=== PATIENT | male | born 1980 | race Hispanic/Latino ===

== ENCOUNTER 2018-02-18 06:20 | Inpatient (IN) | payer OTHER ==
[~2018-02-18] VITALS: Ht 182.9 cm; Wt 98.1 kg
--- NOTE | 2018-02-18 07:18 | ED GENERAL ADULT ---
History of Present Illness General Chief Complaint: Hand or Wrist Injury Stated Complaint: PT C/O RT INDEX FINGER INFECTION SEEN AT WALK IN Source: patient Exam Limitations: no limitations Vital Signs & Intake/Output Vital Signs & Intake/Output Vital Signs Date Time Temp Pulse Resp B/P B/P Pulse O2 O2 Flow FiO2 Mean Ox Delivery Rate 02/18 0839 98.0 92 18 128/79 99 Room Air 02/18 0631 97.8 98 16 132/96 98 Room Air Allergies Coded Allergies: Penicillins (Intermediate, HIVES 02/18/18) Reconcile Medications Sulfamethoxazole/Trimethoprim (Bactrim Ds Tablet) 800 MG-160 MG TABLET 1 TAB PO BID ANTIBIOTIC, INFECTION (Reported) Triage Note: PT STATES HE BURNED HIS R INDEX FINGER LAST WEEKEND AND WOUND GOT INCREASINGLY SWOLLEN AND PAINFUL AND RED. WENT TO WALK IN ON THURSDAY AND WAS PRESCRIBED BACTRIM WHICH HE HAS BEEN TAKING ORDERED, STAES SWELLING AND PAIN AND REDNESS ARE NOW WORSE. AFEBRILE. Triage Nurses Notes Reviewed? yes Onset: Gradual Duration: day(s): Timing: recent history HPI: 02/18/18 10:12 AM 37-year-old male presents to the emergency department for pain swelling and decreased range of motion to the right index finger. The patient states that he had a burn to his right index finger approximately 3 days ago. He went to an urgent care center was started on Bactrim. Now he says the finger is swollen up and he can no longer move it. He denies fever or other complaints. Past History Travel History Traveled to [place] past 21 day No Medical History Any Pertinent Medical History? 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 No Review of Systems Review of Systems Constitutional: Denies: fever. EENTM: Reports: no symptoms. Respiratory: Denies: short of breath. Cardiovascular: Denies: chest pain. GI: Denies: abdominal pain. Genitourinary: Reports: no symptoms. Musculoskeletal: Reports: see HPI. Skin: Reports: see HPI. Neurological/Psychological: Reports: no symptoms. Hematologic/Endocrine: Reports: no symptoms. Immunologic/Allergic: Reports: no symptoms. Physical Exam Physical Exam General Appearance: well developed/nourished, alert, awake, anxious Head: atraumatic, normal appearance Eyes: Bilateral: normal appearance, PERRL, EOMI. Ears, Nose, Throat: normal pharynx, normal ENT inspection Neck: normal inspection, supple, full range of motion Respiratory: no respiratory distress Cardiovascular: regular rate/rhythm Peripheral Pulses: 4+ radial (R), 4+ radial (L) Gastrointestinal: non-tender Back: normal range of motion Extremities: swelling, tenderness Neurologic/Psych: no motor/sensory deficits, awake, alert, oriented x 3 Skin: rash Comments: He has an ulceration that is the size of a quarter with surrounding erythema and swelling to the right index finger. This is on the lateral aspect of the right index finger. He is unable to flex his right finger. Core Measures ACS in differential dx? No CVA/TIA Diagnosis: No Sepsis Present: No Sepsis Focused Exam Completed? No Progress Differential Diagnoses I considered the following diagnoses in my evaluation of the patient: [ Cellulitis, tenosynovitis, osteomyelitis] Plan of Care: Orders Procedure Date/time Status Heart Healthy Diet 02/18 L Active Patient Data 02/18 0847 Active ED Holding Orders 02/18 0839 Active Admit to inpatient 02/18 0839 Active Vital Signs 02/18 0839 Active Code Status 02/18 0839 Active BLOOD CULTURE 02/18 0756 Active EXTREMETIES CULTURE 02/18 0754 Active COMPREHENSIVE METABOLIC PANEL 02/18 0754 Complete CBC WITHOUT DIFFERENTIAL 02/18 0754 Complete Intake & Output 02/18 0634 Active Current Medications Sig/Julien Start time Last Medication Dose Stop Time Status Admin Sodium Chloride 1,000 ML ONCE ONE 02/18 0800 AC 02/18 (Normal Saline 0.9%) 02/18 1439 0827 Laboratory Tests 02/18/18 0920: RBC 4.72, MCV 84.7, MCH 28.7, MCHC 33.9, RDW 13.3, MPV 8.6, Gran % 73.9, Lymphocytes % 17.5 L, Monocytes % 7.8, Eosinophils % 0.7, Basophils % 0.1, Absolute Granulocytes 7.8 H, Absolute Lymphocytes 1.8, Absolute Monocytes 0.8 H, Absolute Eosinophils 0.1, Absolute Basophils 0 02/18/18 0842: Anion Gap 8, Estimated GFR > 60, BUN/Creatinine Ratio 15.0, Glucose 115 H, Calcium 9.2, Total Bilirubin 0.5, AST 18, ALT 37, Alkaline Phosphatase 58, Total Protein 6.9, Albumin 4.2, Globulin 2.7, Albumin/Globulin Ratio 1.6 Microbiology 02/18 09 BLOOD: Blood Culture - RECD 02/18 842 BLOOD: Blood Culture - RECD 02/18 754 EXTREMITIE: Culture & Sensitivity - ORD 02/18 754 EXTREMITIE: Gram Stain - ORD Initial ED EKG: none Departure Departure Disposition: STILL A PATIENT Condition: Stable Clinical Impression Primary Impression: Cellulitis Referrals: Patient Has No Primary Care Dr (PCP/Family) Departure Forms: Customer Survey General Discharge Information Admission Note Spoke With: Tim SUN,Jasmin Documentation of Exam: Documentation of any treatments & extenuating circumstances including Concerns Regarding Discharge (functional status, medication knowledge or non-compliance, living conditions, etc.) that warrant an admission rather than observation: [ Patient needs IV antibiotics, hand consult Critical Care Note Critical Care Note Critical Care Time: 30-74 min
[2018-02-18] MEDS ORDERED: BACTRIM DS TAB1 EACH PO (08:18)
[2018-02-18 09:35] LABS: ABSOLUTE BASOPHIL COUNT 0 /CUMM (0.0-0.2); ABSOLUTE EOSINOPHIL COUNT 0.1 /CUMM (0.0-0.7); ABSOLUTE GRANULOCYTE CT 7.8 /CUMM (1.4-6.5); ABSOLUTE LYMPH COUNT 1.8 /CUMM (1.2-3.4); ABSOLUTE MONOCYTE COUNT 0.8 /CUMM (0.10-0.60); BASOPHIL % 0.1 % (0.0-2.0); EOSINOPHIL % 0.7 % (0-5); GRANULOCYTE % 73.9 % (42.2-75.2); HEMATOCRIT 39.9 % (42-52); MEAN CORPUSCULAR HGB 28.7 PG (27.0-31.0); MEAN CORPUSCULAR HGB CONC 33.9 G/DL (33.0-37.0); MEAN CORPUSCULAR VOLUME 84.7 FL (80.0-94.0); MEAN PLATELET VOLUME 8.6 FL (7.4-10.4); PLATELET COUNT 246 /CUMM (130-400); RBC DISTRIBUTION WIDTH 13.3 % (11.5-14.5); RED BLOOD CELL CT 4.72 /CUMM (4.70-6.10); WHITE BLOOD CELL COUNT 10.5 /CUMM (4.8-10.8)
[2018-02-18 10:25] VITALS: BP 134/90
--- NOTE | 2018-02-18 11:18 | History & Physical ---
Walker SUN,Kate 02/18/18 1106: General Information and HPI MD Statement: I have seen and personally examined RUFINO LOCO and documented this H&P. The patient is a 37 year old M who presented with a patient stated chief complaint of [hand swelling]. Source of Information: patient Exam Limitations: no limitations History of Present Illness: This is a 37 yo male w/ r. hand dominance and with no chronic PMH who comes in for CC of r. index finger swelling and pain. This past Thursday, while cooking, he seared his r. index finger and sustained a burn. Subsequently, he noted that the finger became more swollen, painful and difficult to move. Initially, he used triple antibiotic ointment on the finger after he self-lanced the blister over the burn, then by Thursday he went to walkin clinic and obtained a prescription for bactrim DS and has been taking it BID since. However, by thursday he noted purulent drainage, worsening pain (10/10) and chills with malaise. As such he came to the hospital the next day. Notably, he has +MRSA history from several years ago when he had a prolonged hospitalization (8 days) for an inguinal cyst. He also endorses a Pencillin allergy but is unable to articulate the reaction, only that he had fever, rash, and that his hospitalization was extended by two days due to the antibiotic. 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 SURG HX: Spinal fusion and inguinal cyst He denies fever, cp, nausea, vomiting, russ, but does endorse chills, malaise and worsening pain in the aforementioned digit. 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 Home Services at Home: None Smoking Status: Current Everyday Smoker ETOH Use: denies use Review of Systems Review of Systems Constitutional: Reports: see HPI. Exam & Diagnostic Data Last 24 Hrs of Vital Signs/I&O Vital Signs Date Time Temp Pulse Resp B/P B/P Pulse O2 O2 Flow FiO2 Mean Ox Delivery Rate 02/18 1025 98.3 78 134/90 98 Room Air 02/18 0839 98.0 92 18 128/79 99 Room Air 02/18 0631 97.8 98 16 132/96 98 Room Air Intake & Output 02/18 1600 02/18 0800 02/18 0000 Intake Total Output Total Balance Patient 98.089 kg 98.883 kg Weight Weight Bed scale Reported by Patient Measurement Method Physical Exam General Appearance Alert, Oriented X3, Cooperative, No Acute Distress Skin r. index finger erythematous with open 2 cm open area in lateral aspect of digit. HEENT Atraumatic, PERRLA, EOMI, Mucous Membr. moist/pink Neck Supple Cardiovascular Regular Rate, Normal S1, Normal S2, No Murmurs Lungs Clear to Auscultation, Normal Air Movement Abdomen Soft, No Tenderness Extremities SEE SKIN. Additionally, pt's entire r. hand is swollen in comparison to the left. he has a small node in epicondilar region. no streaking noted though the hand itself is swollen. Last 24 Hrs of Labs/Dwain: Laboratory Tests 02/18/18 0920: RBC 4.72, MCV 84.7, MCH 28.7, MCHC 33.9, RDW 13.3, MPV 8.6, Gran % 73.9, Lymphocytes % 17.5 L, Monocytes % 7.8, Eosinophils % 0.7, Basophils % 0.1, Absolute Granulocytes 7.8 H, Absolute Lymphocytes 1.8, Absolute Monocytes 0.8 H, Absolute Eosinophils 0.1, Absolute Basophils 0 02/18/18 0842: Anion Gap 8, Estimated GFR > 60, BUN/Creatinine Ratio 15.0, Glucose 115 H, Calcium 9.2, Total Bilirubin 0.5, AST 18, ALT 37, Alkaline Phosphatase 58, Total Protein 6.9, Albumin 4.2, Globulin 2.7, Albumin/Globulin Ratio 1.6 Microbiology 02/18 0900 BLOOD: Blood Culture - RECD 02/18 0842 BLOOD: Blood Culture - RECD 02/18 0754 EXTREMITIE: Culture & Sensitivity - ORD 02/18 754 EXTREMITIE: Gram Stain - ORD Assessment/Plan Assessment: This is a 37 yo male with no chronic PMH on no meds who comes in for CC of r. index finger pain, erythema and swelling after sustaining a burn and self- lancing the resulting blister. He attempted anti-biotic cream and has failed outpt PO antibiotic therapy. Given worsening pain and immobility he came to the hospital for further management. He is admitted to floor for hand surgery consultation and IV abx. PLAN: 1. R. index finger erythema and swelling: DDX includes cellulitis, or tenosynovitis. He does have elevated white count 13.5, but vitals stable so no concern for sepsis. * Con't Vancomycin given purulence noted on photographs from the day before ( though I was unable to express any drainage at time of admission) and due to penicillin allergy * Hand surgery consult * XRY of hand * F/U BCX FC Chem ppx HHD As Ranked By This Provider Problem List: 1. Cellulitis Core Measures/Misc (02/22) Acute Coronary Syndrome ACS Diagnosis: No Congestive Heart Failure Congestive Heart Failure Diagnosis No Cerebrovascular Accident CVA/TIA Diagnosis: No VTE (View Protocol) VTE Risk Factors Acute Medical Illness No Mechanical VTE Prophylaxis d/t N/A MechProphylax Ordered No VTE Pharm Prophylaxis d/t NA PharmProphylax ordered Sepsis (View protocol) Sepsis Present: No If YES complete Sepsis Event Note If YES complete Sepsis Event Note Jasmin Dumont MD 02/18/18 1203: Core Measures/Misc (02/22) Sepsis (View protocol) If YES complete Sepsis Event Note If YES complete Sepsis Event Note Attending MD Review Statement Attending Statement Attending MD Statement: examined this patient, discuss w/resident/PA/SHIP/REC/DOC CONTROL, agreed w/resident/PA/SHIP/REC/DOC CONTROL, reviewed EMR data (avail), discussed with nursing, discussed with case mgmt, amended to note Attending Assessment/Plan: 37-year-old male with past medical history significant for infected inguinal cyst with MRSA, history of spinal fusion surgery now on medical marijuana who is presenting with a right index finger swelling/redness as well as hand swelling. 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 It all started over the weekend with a small burn. He noticed a blister on Thursday which she popped and drained serous fluid. By Thursday he started noticing that his finger was getting swollen and red. He went to a walk-in clinic and was prescribed Bactrim. He has been taking Bactrim all along but in the last 2 days the finger is gotten worse to the point that now it is much more swollen and his whole hand is swollen. It is extremely tender to touch. He has limited range of motion with flexion at the right index finger. He was also prescribed Motrin from the walk-in clinic which he did not take much. He did have some chills but does not know about his temperature. He was afebrile in the emergency room. Vital Signs Date Time Temp Pulse Resp B/P B/P Pulse O2 O2 Flow FiO2 Mean Ox Delivery Rate 02/18 1025 98.3 78 134/90 98 Room Air 02/18 0839 98.0 92 18 128/79 99 Room Air 02/18 0631 97.8 98 16 132/96 98 Room Air on exam; aox3, nad. cv; s1,s2, rrr resp; clear abd; soft, nt, bs+ ext; no edema skin: Right index finger swelling and erythema. 2 small points of eschar formation but as such no open wound. Positive swelling of the right hand. Limited range of motion at the finger. Laboratory Tests 02/18 02/18 0920 0842 Chemistry Sodium (137 - 145 mmol/L) 138 Potassium (3.5 - 5.1 mmol/L) 4.4 Chloride (98 - 107 mmol/L) 106 Carbon Dioxide (22 - 30 mmol/L) 25 Anion Gap (5 - 16) 8 BUN (9 - 20 mg/dL) 12 Creatinine (0.7 - 1.2 mg/dL) 0.8 Estimated GFR (>60 ml/min) > 60 BUN/Creatinine Ratio (7 - 25 %) 15.0 Glucose (65 - 99 mg/dL) 115 H Calcium (8.4 - 10.2 mg/dL) 9.2 Total Bilirubin (0.2 - 1.3 mg/dL) 0.5 AST (17 - 59 U/L) 18 ALT (21 - 72 U/L) 37 Alkaline Phosphatase (< 127 U/L) 58 Total Protein (6.3 - 8.2 g/dL) 6.9 Albumin (3.5 - 5.0 g/dL) 4.2 Globulin (1.9 - 4.2 gm/dL) 2.7 Albumin/Globulin Ratio (1.1 - 2.2 %) 1.6 Hematology WBC (4.8 - 10.8 /CUMM) 10.5 RBC (4.70 - 6.10 /CUMM) 4.72 Hgb (14.0 - 18.0 G/DL) 13.5 L Hct (42 - 52 %) 39.9 L MCV (80.0 - 94.0 FL) 84.7 MCH (27.0 - 31.0 PG) 28.7 MCHC (33.0 - 37.0 G/DL) 33.9 RDW (11.5 - 14.5 %) 13.3 Plt Count (130 - 400 /CUMM) 246 MPV (7.4 - 10.4 FL) 8.6 Gran % (42.2 - 75.2 %) 73.9 Lymphocytes % (20.5 - 51.1 %) 17.5 L Monocytes % (1.7 - 9.3 %) 7.8 Eosinophils % (0 - 5 %) 0.7 Basophils % (0.0 - 2.0 %) 0.1 Absolute Granulocytes (1.4 - 6.5 /CUMM) 7.8 H Absolute Lymphocytes (1.2 - 3.4 /CUMM) 1.8 Absolute Monocytes (0.10 - 0.60 /CUMM) 0.8 H Absolute Eosinophils (0.0 - 0.7 /CUMM) 0.1 Absolute Basophils (0.0 - 0.2 /CUMM) 0 Hand Xray: pending. A/P: 37-year-old male with past medical history significant for infected inguinal cyst with MRSA, history of spinal fusion surgery now on medical marijuana admitted with right index finger and hand likely infected wound with some cellulitis. Patient admitted to medicine floor. We will follow-up on the blood cultures. Patient received vancomycin in the emergency room with his history of MRSA. Patient will be on pain pathway. Hand surgery consult will be called. Patient will require likely deeper cultures of the finger. Will follow up on the cultures and adjust antibiotics but for now we will continue the IV vancomycin. Pharmacologic DVT prophylaxis and patient is a full.
--- NOTE | 2018-02-18 12:57 | Cons- Plastic Surgery ---
General Information and HPI Consulting Request Date of Consult: 02/18/18 Requested By: Jasmin Dumont MD Reason for Consult: Cellulitis dominant right index finger Source of Information: patient (rn) Exam Limitations: no limitations History of Present Illness: 37-year-old [id number] male working at his place of employment [facility] 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 He had a small spot and drained small clear fluid with digital manipulation. He subsequently went to a walk-in clinic and was started on Bactrim due to a history of MRSA. The area increased in redness swelling and discomfort and he presents for evaluation. 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 Home Services at Home: None Smoking Status: Current Everyday Smoker ETOH Use: denies use Review of Systems Review of Systems: All other systems negative Exam & Diagnostic Data Vital Signs and I&O Vital Signs Date Time Temp Pulse Resp B/P B/P Pulse O2 O2 Flow FiO2 Mean Ox Delivery Rate 02/18 1025 98.3 78 134/90 98 Room Air 02/18 0839 98.0 92 18 128/79 99 Room Air 02/18 0631 97.8 98 16 132/96 98 Room Air Intake & Output 02/18 1600 02/18 0800 02/18 0000 02/17 1600 02/17 0800 02/17 0000 Intake Total Output Total Balance Patient 216 lb 218 lb Weight Weight Bed scale Reported by Patient Measurement Method Physical Exam General Appearance: well developed/nourished Head: atraumatic, normal appearance Eyes: Bilateral: normal appearance, PERRL, EOMI. Ears, Nose, Throat: normal pharynx, normal ENT inspection, hearing grossly normal Neck: normal inspection, supple, full range of motion Respiratory: no respiratory distress Cardiovascular: regular rate/rhythm Peripheral Pulses: 2+ carotid (R), 2+ carotid (L) Gastrointestinal: soft, non-tender Back: normal inspection Extremities: normal inspection (except where noted) Neurologic/Psych: no motor/sensory deficits Other Physical Findings: Examination of the dominant right index finger shows some mild epidermal necrosis/adherent blistered epidermis no active drainage with digital manipulation mild cellulitis without extension surrounding edema with some decreased in range of motion due to same. No tenosynovitis. Assessment/Plan Assessment/Plan Cellulitis following thermal injury to skin. Continue antibiotics per infectious disease, no indication for surgical intervention, will reevaluate tomorrow morning. Patient may wash area with soap and water as needed. Continue elevation. Consult Acknowledgment - Thank you for your consult request.
--- NOTE | 2018-02-18 13:48 | RADIOLOGY REPORT ---
EXAMINATION: XR HAND, RIGHT CLINICAL INFORMATION: Right finger infection. Rule out osteomyelitis. Swollen second finger. COMPARISON: None TECHNIQUE: PA, lateral, and oblique views of the right hand. FINDINGS: There is diffuse soft tissue swelling about the second digit. No osseous erosion, periostitis, or subcutaneous emphysema is seen. There is no fracture or dislocation. The alignment is maintained. The carpal arcs are normally aligned. The distal radius and ulna appear normal. IMPRESSION: Diffuse soft tissue swelling about the second digit. No osseous erosion.
[2018-02-18 14:15] VITALS: BP 116/86
[2018-02-18 21:10] VITALS: BP 137/81
[2018-02-19 06:21] VITALS: BP 140/78
[2018-02-19 07:47] LABS: ABSOLUTE BASOPHIL COUNT 0 /CUMM (0.0-0.2); ABSOLUTE EOSINOPHIL COUNT 0.2 /CUMM (0.0-0.7); ABSOLUTE GRANULOCYTE CT 5.9 /CUMM (1.4-6.5); ABSOLUTE LYMPH COUNT 1.6 /CUMM (1.2-3.4); ABSOLUTE MONOCYTE COUNT 0.6 /CUMM (0.10-0.60); BASOPHIL % 0.3 % (0.0-2.0); EOSINOPHIL % 1.9 % (0-5); GRANULOCYTE % 71.1 % (42.2-75.2); HEMATOCRIT 39.6 % (42-52); MEAN CORPUSCULAR HGB 28.9 PG (27.0-31.0); MEAN CORPUSCULAR HGB CONC 34.1 G/DL (33.0-37.0); MEAN CORPUSCULAR VOLUME 84.6 FL (80.0-94.0); MEAN PLATELET VOLUME 8.8 FL (7.4-10.4); PLATELET COUNT 220 /CUMM (130-400); RBC DISTRIBUTION WIDTH 13.3 % (11.5-14.5); RED BLOOD CELL CT 4.68 /CUMM (4.70-6.10); WHITE BLOOD CELL COUNT 8.3 /CUMM (4.8-10.8)
--- NOTE | 2018-02-19 08:01 | PN- Housestaff ---
Walker SUN,Shreyas 02/19/18 0800: Subjective Follow-up For: FINGER CELLULITIS Subjective: Saw pt at bedside. no acute overnight events or complaints. Review of Systems Constitutional: Denies: chills, fever, weakness. EENTM: Reports: no symptoms. Cardiovascular: Denies: chest pain. Respiratory: Denies: cough, short of breath. Gastrointestinal: Reports: no symptoms. Genitourinary: Reports: no symptoms. Musculoskeletal: Reports: joint pain, joint swelling. Skin: Reports: lesions. Objective Last 24 Hrs of Vital Signs/I&O Vital Signs Date Time Temp Pulse Resp B/P B/P Pulse O2 O2 Flow FiO2 Mean Ox Delivery Rate 02/19 0621 98.6 86 20 140/78 97 Room Air 02/18 2110 98.9 80 20 137/81 98 Room Air 02/18 1415 98.2 75 18 116/86 99 Room Air 02/18 1025 98.3 78 134/90 98 Room Air 02/18 0839 98.0 92 18 128/79 99 Room Air Intake & Output 02/19 1600 02/19 0800 02/19 0000 Intake Total 730 1090 Output Total 800 1050 Balance -70 40 Intake, IV 250 250 Intake, Oral 480 840 Output, Urine 800 1050 Physical Exam General Appearance: Oriented X3, Cooperative, No Acute Distress Skin: R. INDEX FINGER WIHT ERYTHEMA AND SWELLING . HEENT: Atraumatic, PERRLA, EOMI Neck: Supple Cardiovascular: Regular Rate, Normal S1, Normal S2 Lungs: Normal Air Movement Abdomen: Soft, No Tenderness Extremities: No Clubbing, No Edema Current Medications: Current Medications Sig/Julien Start time Last Medication Dose Route Stop Time Status Admin Acetaminophen 650 MG Q6P PRN 02/18 1130 AC PO Enoxaparin Sodium 40 MG DAILY 02/19 09 AC SC Ketorolac 15 MG Q6P PRN 02/18 1130 AC 02/18 Tromethamine IV 2115 Ondansetron HCl 4 MG Q6P PRN 02/18 1130 AC IV Oxycodone/ 1 TAB Q6P PRN 02/18 1130 AC 02/19 Acetaminophen PO 0722 Senna/Docusate Sodium 1 TAB AT BEDTIME NEED.. 02/18 1130 AC PO Sodium Chloride 1,000 ML ONCE ONE 02/18 0800 DC 02/18 IV 02/18 1439 0827 Vancomycin HCl 1,500 MG DAILY 02/19 0900 CAN IV Vancomycin HCl 1,500 MG Q12H 02/18 2100 AC 02/18 Sodium Chloride 250 ML IV 211 Vancomycin HCl 1,500 MG ONCE ONE 02/18 0800 DC 02/18 Sodium Chloride 250 ML IV 02/18 0930 0903 Assessment/Plan Assessment: This is a 37 yo male with no chronic PMH on no meds who comes in for CC of r. index finger pain, erythema and swelling after sustaining a burn and self- lancing the resulting blister. He attempted anti-biotic cream and has failed outpt PO antibiotic therapy. Given worsening pain and immobility he came to the hospital for further management. He is admitted to floor for hand surgery consultation and IV abx. PLAN: 1. R. index finger erythema and swelling: Likely cellulitis 2/2 to manual instrumentaiton of his burn. We initially started him on vanco given penicillin allergy and evidence of purulent drainage. However, he is afebrile, without white count. Hand surgery saw him and suggeste no immediate intervention. Will switch him from Vanco to Cefazolin and see if he has rxn or he improves. This gives us the opportunity to d/c on oral antibiotic sooner if he improves. * Appreciate hand surgery consult * Switch Vanco 1.5g q12-> Cefazolin 1gm q8. Day 2 of IV abx * F/U BCX-NGTD FC Chem ppx HHD Problem List: 1. Cellulitis Pain Ratin Pain Location: none Pain Goal: Remain pain free Pain Plan: NONE Tomorrow's Labs & Rationales: CBC BRE Dumont MD,Jasmin 02/19/18 1057: Attending MD Review Statement Attending Statement Attending MD Statement: examined this patient, discuss w/resident/PA/MACHINE STRAW HAT PRESSER, agreed w/resident/PA/MACHINE STRAW HAT PRESSER, reviewed EMR data (avail), discussed with nursing, discussed with case mgmt, reviewed images, amended to note Attending Assessment/Plan: Patient seen and examined, the right index finger swelling and erythema is slightly better but patient continues to complain of severe pain. He remains afebrile and white count normal. Patient seen by plastic surgery yesterday. Vital Signs Date Time Temp Pulse Resp B/P B/P Pulse O2 O2 Flow FiO2 Mean Ox Delivery Rate 02/19 0621 98.6 86 20 140/78 97 Room Air 02/18 2110 98.9 80 20 137/81 98 Room Air 02/18 1415 98.2 75 18 116/86 99 Room Air on exam; aox3, nad. cv; s1,s2, rrr resp; clear abd; soft, nt, bs+ ext; no edema skin: + Erythema on the left index finger but hand swelling is definitely better. Laboratory Tests 02/19 642 Chemistry Sodium (137 - 145 mmol/L) 135 L Potassium (3.5 - 5.1 mmol/L) 4.6 Chloride (98 - 107 mmol/L) 104 Carbon Dioxide (22 - 30 mmol/L) 22 Anion Gap (5 - 16) 9 BUN (9 - 20 mg/dL) 13 Creatinine (0.7 - 1.2 mg/dL) 0.8 Estimated GFR (>60 ml/min) > 60 BUN/Creatinine Ratio (7 - 25 %) 16.3 Hematology CBC w Diff NO MAN DIFF REQ WBC (4.8 - 10.8 /CUMM) 8.3 RBC (4.70 - 6.10 /CUMM) 4.68 L Hgb (14.0 - 18.0 G/DL) 13.5 L Hct (42 - 52 %) 39.6 L MCV (80.0 - 94.0 FL) 84.6 MCH (27.0 - 31.0 PG) 28.9 MCHC (33.0 - 37.0 G/DL) 34.1 RDW (11.5 - 14.5 %) 13.3 Plt Count (130 - 400 /CUMM) 220 MPV (7.4 - 10.4 FL) 8.8 Gran % (42.2 - 75.2 %) 71.1 Lymphocytes % (20.5 - 51.1 %) 19.3 L Monocytes % (1.7 - 9.3 %) 7.4 Eosinophils % (0 - 5 %) 1.9 Basophils % (0.0 - 2.0 %) 0.3 Absolute Granulocytes (1.4 - 6.5 /CUMM) 5.9 Absolute Lymphocytes (1.2 - 3.4 /CUMM) 1.6 Absolute Monocytes (0.10 - 0.60 /CUMM) 0.6 Absolute Eosinophils (0.0 - 0.7 /CUMM) 0.2 Absolute Basophils (0.0 - 0.2 /CUMM) 0 A/P; 37-year-old male with past medical history significant for infected inguinal cyst with MRSA, history of spinal fusion surgery now on medical marijuana admitted with right index finger and hand likely infected wound with some cellulitis. So far cultures remained negative. Patient was seen by plastic surgery yesterday and they did not think that any surgical intervention or incision and drainage was needed. Hand x-ray shows soft tissue swelling. At this point we will switch him to cefazolin as cultures did not grow any MRSA so far. Will monitor the response. If patient continues to improve with cefazolin, will likely switch him to oral Keflex in the next 24-48 hours. Pain is uncontrolled. We will increase the dose of Percocet. Continue the rest of the medications. Pharmacologic DVT prophylaxis. Disposition: Likely next 24-48 hours pending response to the antibiotics and culture results.
[2018-02-19 13:50] VITALS: BP 154/76
--- NOTE | 2018-02-19 13:57 | PN- Plastic Surgery ---
Subjective Subjective: Patient states he has improved dexterity with decreased swelling and erythema Review of Systems: all other Systems negative Objective Vital Signs and I&Os Vital Signs Date Time Temp Pulse Resp B/P B/P Pulse O2 O2 Flow FiO2 Mean Ox Delivery Rate 02/19 1350 98.3 68 20 154/76 98 Room Air 02/19 0621 98.6 86 20 140/78 97 Room Air 02/18 2110 98.9 80 20 137/81 98 Room Air 02/18 1415 98.2 75 18 116/86 99 Room Air Intake & Output 02/19 1600 02/19 0800 02/19 0000 02/18 1600 02/18 0000 Intake Total 730 1090 1550 Output Total 800 1050 400 Balance -70 40 1150 Intake, IV 250 250 750 Intake, Oral 480 840 800 Output, Urine 800 1050 400 Patient 216 lb 218 lb Weight Weight Bed scale Reported by Patient Measurement Method Assessment/Plan Assessment/Plan stable/ slight improvement. No worsening nor increasing necrosis nor fluctuance that would prompt surgical intervention, cont same. f/u next office
--- NOTE | 2018-02-19 15:11 | Patient Discharge Instructions ---
Discharge Instructions General Discharge Information You were seen/treated for: 1. cellulitis You had these procedures: 1. antibiotic administration Watch for these problems: 1. fever 2. chills 3. worsening swelling of the finger Special Instructions: 1. follow up with pcp 2. complete antibiotic as recommended Diet Continue normal diet: Yes Acute Coronary Syndrome Inclusion Criteria At DC or during hospital stay patient has or had the following: ACS DIAGNOSIS No Discharge Core Measures Meds if any: Prescribed or Continued at Discharge Meds if any: NOT Prescribed or Continued at Discharge Congestive Heart Failure Inclusion Criteria At DC or during hospital stay patient has or had the following: CHF DIAGNOSIS No Discharge Core Measures Meds if any: Prescribed or Continued at Discharge Meds if any: NOT Prescribed or Continued at Discharge Cerebrovascular accident Inclusion Criteria At DC or during hospital stay patient has or had the following: CVA/TIA Diagnosis No Discharge Core Measures Meds if any: Prescribed or Continued at Discharge Meds if any: NOT Prescribed or Continued at Discharge Venous thromboembolism Inclusion Criteria VTE Diagnosis No VTE Type NONE VTE Confirmed by (Test) NONE Discharge Core Measures - Per Current guidelines, there needs to be overlap - treatment for the first 5 days of Warfarin therapy. - If discharged on Warfarin prior to 5 days of - overlap therapy, the patient will need to be - assessed for post discharge needs including - *Post discharge parental anticoagulation - *Warfarin and/or parental anticoagulation education - *Follow up date to check INR post discharge At least 5 days overlap therapy as Inpatient No Meds if any: Prescribed or Continued at Discharge Note: Overlap Therapy is Warfarin and Anticoagulant Meds if any: NOT Prescribed or Continued at Discharge
[2018-02-19] MEDS ORDERED: KEFLEX500 M1 PO (15:14)
[2018-02-19 22:11] VITALS: BP 141/53
[2018-02-20 07:37] VITALS: BP 131/68
[2018-02-20 08:14] LABS: ABSOLUTE BASOPHIL COUNT 0 /CUMM (0.0-0.2); ABSOLUTE EOSINOPHIL COUNT 0.2 /CUMM (0.0-0.7); ABSOLUTE GRANULOCYTE CT 5.1 /CUMM (1.4-6.5); ABSOLUTE LYMPH COUNT 2.1 /CUMM (1.2-3.4); ABSOLUTE MONOCYTE COUNT 0.9 /CUMM (0.10-0.60); BASOPHIL % 0.5 % (0.0-2.0); GRANULOCYTE % 61.1 % (42.2-75.2); HEMATOCRIT 39.3 % (42-52); MEAN CORPUSCULAR HGB CONC 33.7 G/DL (33.0-37.0); MEAN PLATELET VOLUME 8.9 FL (7.4-10.4); PLATELET COUNT 212 /CUMM (130-400); RBC DISTRIBUTION WIDTH 13.5 % (11.5-14.5); RED BLOOD CELL CT 4.57 /CUMM (4.70-6.10); WHITE BLOOD CELL COUNT 8.3 /CUMM (4.8-10.8)
--- NOTE | 2018-02-20 08:45 | PN- Housestaff ---
Raulito SUN,Heidi 02/20/18 0845: Subjective Follow-up For: FINGER CELLULITIS Subjective: Patient seen and examined. reports no improvement in cellulituis. nO Overnight events reported Review of Systems Constitutional: Reports: see HPI. Objective Last 24 Hrs of Vital Signs/I&O Vital Signs Date Time Temp Pulse Resp B/P B/P Pulse O2 O2 Flow FiO2 Mean Ox Delivery Rate 02/20 0737 98.1 78 18 131/68 99 02/19 2211 98.5 78 16 141/53 100 Room Air Intake & Output 02/20 1600 02/20 0800 02/20 0000 Intake Total 600 Output Total 550 Balance 50 Intake, Oral 600 Output, Urine 550 Physical Exam General Appearance: Alert, Oriented X3 Other Physical Findings: Skin: R. INDEX FINGER WIHT ERYTHEMA AND SWELLING . HEENT: Atraumatic, PERRLA, EOMI Neck: Supple Cardiovascular: Regular Rate, Normal S1, Normal S2 Lungs: Normal Air Movement Abdomen: Soft, No Tenderness Current Medications: Current Medications Sig/Julien Start time Last Medication Dose Route Stop Time Status Admin Acetaminophen 650 MG Q6P PRN 02/18 1130 AC PO Cefazolin Sodium 1,000 MG IQ8 02/19 1600 AC 02/20 IV 0813 Enoxaparin Sodium 40 MG DAILY 02/19 0900 AC 02/20 SC 0813 Ketorolac 15 MG Q6P PRN 02/18 1130 AC 02/20 Tromethamine IV 1048 Ondansetron HCl 4 MG Q6P PRN 02/18 1130 AC IV Oxycodone/ 2 TAB Q4P PRN 02/19 0935 AC 02/20 Acetaminophen PO 1212 Patient Medication 1 ED ONE ONE 02/19 2015 TX Teaching ED 02/19 2016 Senna/Docusate Sodium 1 TAB AT BEDTIME NEED.. 02/18 1130 AC PO Last 24 Hrs of Lab/Dwain Results Last 24 Hrs of Labs/Mics: Laboratory Tests 02/20/18 0615: CBC w Diff NO MAN DIFF REQ, RBC 4.57 L, MCV 86.0, MCH 29.0, MCHC 33.7, RDW 13.5 , MPV 8.9, Gran % 61.1, Lymphocytes % 25.9, Monocytes % 10.5 H, Eosinophils % 2.0, Basophils % 0.5, Absolute Granulocytes 5.1, Absolute Lymphocytes 2.1, Absolute Monocytes 0.9 H, Absolute Eosinophils 0.2, Absolute Basophils 0 Assessment/Plan Assessment: This is a 37 yo male with no chronic PMH on no meds who comes in for CC of r. index finger pain, erythema and swelling after sustaining a burn and self- lancing the resulting blister. He attempted anti-biotic cream and has failed outpt PO antibiotic therapy. Given worsening pain and immobility he came to the hospital for further management. He is admitted to floor for hand surgery consultation and IV abx. PLAN: 1. R. index finger erythema and swelling: Likely cellulitis 2/2 to manual instrumentaiton of his burn. We initially started him on vanco given penicillin allergy and evidence of purulent drainage. However, he is afebrile, without white count. Hand surgery saw him and suggeste no immediate intervention. Will switch him from Vanco to Cefazolin and see if he has rxn or he improves. This gives us the opportunity to d/c on oral antibiotic sooner if he improves. * Appreciate hand surgery consult * Continue Cefazolin 1gm q8 day 3 of antibiotics * F/U BCX-NGTD FC Chem ppx HHD Problem List: 1. Cellulitis Pain Ratin Pain Location: LEFT HAND Pain Goal: Pain 4 or less Pain Plan: PRN Tomorrow's Labs & Rationales: CAROLINE Mariano MD,Diamond 02/20/18 1004: Attending MD Review Statement Attending Statement Attending MD Statement: examined this patient, discuss w/resident/PA/SONOGRAPHER, agreed w/resident/PA/SONOGRAPHER, reviewed EMR data (avail), discussed with nursing, reviewed images Attending Assessment/Plan: Patient feels his area of cellulitis is about the same. He is taking the Percocets and the Toradol for pain. He status post a thermal injury with cellulitis. He was seen by plastics and there is nothing to be surgically drained. He is on IV Ancef and will continue IV antibiotics.
[2018-02-20 14:30] VITALS: BP 157/108
[2018-02-20 22:03] VITALS: BP 125/64
[2018-02-21 06:25] VITALS: BP 146/90
--- NOTE | 2018-02-21 08:35 | PN- Housestaff ---
John SUN,Antoinette 02/21/18 0834: Subjective Follow-up For: RIGHT INDEX FINGER CELLULITIS Subjective: seen and examined, had issues with IV line this morning. He do have pain but better with pain medications. No overnight issues otherwise. Review of Systems Constitutional: Reports: see HPI. Objective Last 24 Hrs of Vital Signs/I&O Vital Signs Date Time Temp Pulse Resp B/P B/P Pulse O2 O2 Flow FiO2 Mean Ox Delivery Rate 02/21 06 98.2 65 20 146/90 100 02/20 2203 98.3 78 20 125/64 99 Room Air 02/20 1430 98.4 71 16 157/108 99 Room Air Intake & Output 02/21 1600 02/21 0800 02/21 0000 Intake Total 120 Output Total Balance 120 Intake, Oral 120 Physical Exam General Appearance: Alert, Oriented X3, Cooperative Skin: No Rashes, significant erythema with open ulceration on the right index finger, appears improving Skin Temp/Moisture Exam: Warm/Dry HEENT: Atraumatic, PERRLA, EOMI Neck: Supple, No JVD Cardiovascular: Normal S1, Normal S2, No Murmurs Lungs: Clear to Auscultation, Normal Air Movement Abdomen: Normal Bowel Sounds, Soft, No Tenderness Neurological: Normal Gait, Normal Speech, Strength at 5/5 X4 Ext, Normal Tone Extremities: No Clubbing, No Cyanosis, No Edema Current Medications: Current Medications Sig/Julien Start time Last Medication Dose Route Stop Time Status Admin Acetaminophen 650 MG Q6P PRN 02/18 1130 AC PO Cefazolin Sodium 1,000 MG IQ8 02/19 1600 AC 02/20 IV 2322 Enoxaparin Sodium 40 MG DAILY 02/19 09 AC 02/21 SC 0855 Hydroxyzine HCl 25 MG ONCE ONE 02/20 1445 DC 02/20 PO 02/20 1446 1535 Ketorolac 15 MG Q6P PRN 02/18 1130 AC 02/21 Tromethamine IV 0643 Ondansetron HCl 4 MG Q6P PRN 02/18 1130 AC IV Oxycodone/ 2 TAB Q4P PRN 02/19 0935 AC 02/21 Acetaminophen PO 0525 Senna/Docusate Sodium 1 TAB AT BEDTIME NEED.. 02/18 1130 AC PO Last 24 Hrs of Lab/Dwain Results Last 24 Hrs of Labs/Mics: Laboratory Tests 02/21/18 0845: Sodium Pending, Potassium Pending, Chloride Pending, Carbon Dioxide Pending, Anion Gap Pending, BUN Pending, Creatinine Pending, BUN/Creatinine Ratio Pending Assessment/Plan Assessment: This is a 37 yo male with no chronic PMH on no meds who comes in for CC of r. index finger pain, erythema and swelling after sustaining a burn and self- lancing the resulting blister. He attempted anti-biotic cream and has failed outpt PO antibiotic therapy. Given worsening pain and immobility he came to the hospital for further management. He is admitted to floor for hand surgery consultation and IV abx. PLAN: 1. R. index finger erythema and swelling: Likely cellulitis 2/2 to manual instrumentaiton of his burn. We initially started him on vanco given penicillin allergy and evidence of purulent drainage. However, he is afebrile, without white count. Hand surgery saw him and suggeste no immediate intervention. Switched vanco to cefazolin which he tolerated so transitioned to oral medications for a total of 7 days. Blood cultures NGTD. Discharged on Keflex (12 pills), percocet (15pills) requested follow up with (plastics) and (PCP) FC Chem ppx Problem List: 1. Cellulitis Pain Ratin Pain Location: right index finger Pain Goal: Pain 4 or less Pain Plan: percocet Tomorrow's Labs & Rationales: none Montserrat SUN,Diamond 02/21/18 0929: Attending MD Review Statement Attending Statement Attending MD Statement: examined this patient, discuss w/resident/PA/CLOTH WASHER BACK TENDER, agreed w/resident/PA/CLOTH WASHER BACK TENDER, reviewed EMR data (avail), discussed with nursing, reviewed images Attending Assessment/Plan: Pt is feeling markedly better and is eager to go home. On exam he is afebrile and his right index finger is erythematous and swollen but much better than yesterday. There is minimal drainage. At this point I think it safe to switch him to p.o. Keflex. I stressed the need for close outpatient follow-up and have given him a referral to Dr. Moo Duque PCP and Dr. Prakash the plastic surgeon. We are giving him the Keflex and p.o. Percocet to go home with. I also instructed him that he needs to come back if his symptoms get any worse.
[2018-02-21] MEDS ORDERED: PERCOCET 10-321 EACH PO (09:26)
[2018-02-21] MEDS ORDERED: KEFLEX500 M1 PO (09:34)
== END 2018-02-21 10:25 | DRG 844 ==
LOC: ERH 06:20 → ERHI 08:39 → 2NB 08:39 → ENRESERV 08:53 → ENTRNSPT 10:01 → EDTRNSPT 10:11 → EDTRNSPTSTS 10:11 → 2NB 10:20 → CMPTRNSPT 10:29 → ENPENDDIS 02-21 09:45 → 2NB 02-21 10:25
PROVIDERS: Emergency Medicine; Student in an Organized Health Care Education/Training Program
DX: T23.121A Burn of first degree of single right finger (nail) except thumb, initial encounter (principal); X10.2XXA Contact with fats and cooking oils, initial encounter; Y93.G3 Activity, cooking and baking; L03.011 Cellulitis of right finger; Z98.1 Arthrodesis status; F12.90 Cannabis use, unspecified, uncomplicated; Z88.0 Allergy status to penicillin; F17.200 Nicotine dependence, unspecified, uncomplicated
CPT/HCPCS: 2NBP; 36415; 36592; 73130-RT; 82436; 87040; 87070; 96374; J0690; J1650; J2405; J3370; J7040